=== PATIENT | male | born 2000 | race Caucasian/White ===

== ENCOUNTER 2023-08-11 14:12 | Emergency (ER) | payer SELFPAY ==
[2023-08-11 14:42] VITALS: BP 114/55; PULSE 80; RESP 16; TEMP 98.9; BMI 21.1
== END 2023-08-11 15:29 | disposition home or self-care (01) ==
LOC: JER 14:12 → JERFT 14:12
DX: R21 Rash and other nonspecific skin eruption (principal); L29.9 Pruritus, unspecified; B35.4 Tinea corporis
CPT/HCPCS: 99283-25